=== PATIENT | female | born 1950 | race Hispanic/Latino ===

== ENCOUNTER 2017-06-26 20:11 | Inpatient (IN) | payer BC, MEDICARE, SELFPAY ==
[~2017-06-26 20:11] MED LIST: ISOVUE-370 76%-LOCM 1 ML ONE
[2017-06-26] MEDS ORDERED: EPINEPHrine 1 MG/ML AMP ONE (20:23)
[2017-06-26] MEDS ORDERED: Nitroglycerin 50 MG/250 ML BOT 250 ML ONE (20:35)
[2017-06-26 20:44] LABS: Hematocrit 43.3 % (36.0-47.0); Mean Platelet Volume 11.1 fL (7.4-10.4); Red Blood Cell (RBC) Count 4.77 mill/uL (4.20-5.40); White Blood Cell (WBC) Count 16.7 thou/uL (4.8-10.8)
[2017-06-26] MEDS ORDERED: methylPREDNISolone Sod Succ/PF 125 MG/2 ML VIAL ONE (20:49)
[2017-06-26] MEDS ORDERED: Famotidine/PF 20 mg/2ml Vial ONE (20:49)
--- NOTE | 2017-06-26 20:49 | RAD ---
CHEST ONE VIEWS: History: Dyspnea. FINDINGS: No comparison. The cardiac silhouette is magnified by projection. Pulmonary vasculature is somewhat engorged. Mediastinum is midline. No lobar consolidation or pneumothorax evident. theology teacher le ads overlie the chest. IMPRESSION: Pulmonary vascular congestion with borderline cardiomegaly. POS: [facility]
[2017-06-26 20:50] LABS: PTT 30.2 SEC (22.9-36.1); Prothrombin Time 13.3 SEC (12.0-14.7)
[2017-06-26 21:01] LABS: Lactic Acid - Sepsis 10.1 mmol/L (0.5-2.2)
[2017-06-26 21:02] LABS: ALT (SGPT) 43 U/L (8-55); AST (SGOT) 54 U/L (5-34); Alkaline Phosphatase 157 U/L (40-150); Anion Gap 25 mmol/L (10-20); BUN (Urea Nitrogen) 17 mg/dL (9.8-20.1); Bilirubin, Total 0.6 mg/dL (0.2-1.2); CK (CPK) 109 U/L (29-168); Calc. Creatinine Clearance 0 mL/min (70-130); Calcium 8.8 mg/dL (7.8-10.44); Carbon Dioxide 14 mmol/L (23-31); Chloride 105 mmol/L (98-107); Estimated GFR-MDRD 52; Globulin 3.4 g/dL (2.4-3.5); Lipase 18 U/L (8-78); Protein, Total 7.6 g/dL (6.0-8.3)
[2017-06-26 21:04] LABS: Neutrophil 45 % (42-75)
[2017-06-26 21:06] LABS: Troponin I Less than 0.010 ng/mL (< 0.028)
[2017-06-26] MEDS ORDERED: niCARdipine 20MG In NaCl 20 MG/200 ML BAG ONE (22:10)
--- NOTE | 2017-06-26 22:16 | CT ---
CT ABDOMEN AND PELVIS WITH IV CONTRAST: History: Chest and abdomen pain. FINDINGS: Small amount of right pleural fluid is present with bibasilar atelectasis. The gallbladder is surgic ally absent. The liver, spleen, kidneys, adrenal glands, and pancreas otherwise have a normal CT nhi earance. Circumaortic left renal vein is noted. There is calcification in the arterial structures. U rinary bladder is unremarkable. Diverticula arise from the colon without adjacent inflammation. IMPRESSION: 1. Small right pleural effusion. 2. Diverticulosis. No evidence of diverticulitis. 3. Atherosclerosis. POS: [facility]
--- NOTE | 2017-06-26 22:18 | CT ---
CT ARTERIOGRAM CHEST WITH IV CONTRAST AND 3D MIP IMAGING: History: Dyspnea, chest pain. FINDINGS: There is good contrast opacification of the pulmonary arteries and thoracic aorta with normal branch ing of the great vessels. Heart is slightly enlarged. Pulmonary vasculature is engorged with small a mount of bilateral pleural fluid and scattered mild, predominately dependent airspace opacity. IMPRESSION: 1. No CT evidence of pulmonary embolus. 2. Mild pulmonary vascular congestion. Small bilateral pleural effusions. POS: [facility]
[2017-06-26 22:25] LABS: Anion Gap 12 mmol/L (-14-95); T. Carbon Dioxide 24.8 mmol/L (1.0-85.0); pH (Venous) 7.387 (7.35-7.45); vO2 Saturation-calc 91.6 % (0.0-100.0)
[2017-06-26] MEDS ORDERED: Acetaminophen 325 MG TAB PO PRN (22:49)
[2017-06-26] MEDS ORDERED: HYDROcodone/Acetaminophen 5/325 mg Tablet PO PRN (22:49)
--- NOTE | 2017-06-26 22:49 | PDOC.EVN ---
Event Note - Event Note Event Note: [id number] 1, Lactic acidosis 2. Acute respiratory failure 3. Pulmonary edema 4. HTN uncontrolled plan: see orders
[2017-06-26] MEDS ORDERED: Nitroglycerin 50 MG/250 ML BOT 250 ML IVPB SCH (23:00)
[2017-06-26 23:01] LABS: Bilirubin Negative (Negative); Blood, Urine Small (Negative); Glucose, Urine (Dipstick) 250 mg/dL (Negative); Ketone, Urine Negative (Negative); Nitrite Negative (Negative); Protein, Urine (Dipstick) 100 mg/dL (Neg-Trace)
[2017-06-26 23:03] LABS: Hyaline Casts/LPF 0-3 HYALINE CAST LPF (0-3 Hyaline)
[2017-06-26 23:10] LABS: Bacteria/HPF Rare-Few HPF (None Seen); Renal Epithelial None Seen HPF (0-3); Transitional Epithelial 0-3 HPF (0-3); Yeast-All Forms None Seen HPF (None Seen)
[2017-06-26 23:43] VITALS: BMI 39.1
[2017-06-26 23:49] LABS: Troponin I 0.089 ng/mL (< 0.028)
[2017-06-27 00:53] LABS: Anion Gap 14 mmol/L (10-20); BUN (Urea Nitrogen) 16 mg/dL (9.8-20.1); Calc. Creatinine Clearance 94 mL/min (70-130); Calcium 9.1 mg/dL (7.8-10.44); Carbon Dioxide 23 mmol/L (23-31); Chloride 105 mmol/L (98-107); Estimated GFR-MDRD 68
[2017-06-27 02:51] LABS: #Lymphocytes 0.7 thou/uL (1.20-3.40); #Monocytes 0.2 thou/uL (0.11-0.59); #Neutrophils 11.9 thou/uL (1.40-6.50); %Eosinophils 0.3 % (0.0-10.0); %Lymphocytes 5.1 % (21.0-51.0); %Monocytes 1.4 % (0.0-10.0); Hematocrit 37.2 % (36.0-47.0); Mean Platelet Volume 10.2 fL (7.4-10.4); Red Blood Cell (RBC) Count 4.18 mill/uL (4.20-5.40); White Blood Cell (WBC) Count 12.8 thou/uL (4.8-10.8)
[2017-06-27 03:05] LABS: Troponin I 0.163 ng/mL (< 0.028)
[2017-06-27 03:11] LABS: Anion Gap 14 mmol/L (10-20); BUN (Urea Nitrogen) 17 mg/dL (9.8-20.1); Calc. Creatinine Clearance 90 mL/min (70-130); Calcium 8.8 mg/dL (7.8-10.44); Carbon Dioxide 24 mmol/L (23-31); Chloride 104 mmol/L (98-107); Estimated GFR-MDRD 64
[2017-06-27 05:38] LABS: Troponin I 0.151 ng/mL (< 0.028)
--- NOTE | 2017-06-27 06:16 | HP ---
DATE OF ADMISSION: 06/26/2017 CHIEF COMPLAINT: Dyspnea. HISTORY OF PRESENT ILLNESS: The patient is a 67-year-old female with no significant past medical hi story. The patient was in the restaurant was outside eating food and all of a sudden she started wong ving trouble breathing. The patient was brought to the ER. Upon ER arrival, the patient was having severe bronchospasm, so the patient was suspected of having possible allergic reaction, so patient was given epinephrine and IV Solu-Medrol and Pepcid. Following the epinephrine injection, the patie nt was found to have significantly elevated blood pressure in 180s to 200/120s, so patient was place d on the nitro drip and patient was developed pulmonary edema also. The patient was placed on BiPAP also. The patient denies any chest pain, denies any palpitations, denies any cough, denies any spu deb production. Denies any abdominal pain, denies any nausea, denies any vomiting. Complaints of d yspnea. PAST MEDICAL HISTORY: None. PAST SURGICAL HISTORY: Cholecystectomy, hysterectomy. SOCIAL HISTORY: Denies smoking, denies alcohol, denies any drugs. FAMILY HISTORY: Positive for heart problems. REVIEW OF SYSTEMS: Constitutional: Denies any fever, denies any chills. Eyes: Denies any vision problems. Ears: Denies any hearing loss. Neck: Denies any neck pain. Cardiovascular system: De nies any chest pain. Respiratory system: Positive for dyspnea. Positive for cough. Musculoskelet al: swelling. Cranial Nerve System: Denies syncope. Psychiatric: Denies depression or anx iety. Integumentary: Denies any rash. All other review of systems are reviewed and are negative. PHYSICAL EXAMINATION: CONSTITUTIONAL/VITAL SIGNS: At the time of H and P performed, blood pressure is 170/80, respiratory rate 18, pulse ox 97% on room air. GENERAL: The patient appears tired. HEENT: Anterior nares patent. Nose normal. Ears normal. Teeth intact. Tongue is moist. NECK: Supple. No JVD. CARDIOVASCULAR: S1, S2 present. Regular rate and rhythm. No murmurs, no rubs, no gallops. RESPIRATORY: Diminished breath sounds present. Positive crackles. No wheezing, no rhonchi. GASTROINTESTINAL: Abdomen is soft, nontender. No guarding, no organomegaly, no masses felt. MUSCULOSKELETAL: Positive for trace edema. INTEGUMENTARY: No obvious rashes seen. PSYCHIATRIC: Mood is appropriate at this time. LABORATORY AND DIAGNOSTIC DATA: At the time of H and P performed, white count 16.7, hemoglobin 14, platelet count is 232. PT 13.3, INR 1. BMP showed sodium 141, potassium 3, chloride 105, CO2 of 14 , BUN of 17, creatinine 1.02. Lactic acid 10.5. BNP 635. EKG, no acute ST wave changes seen. CT of abdomen and pelvis without contrast, showed small right pleural effusion, no evidence of divertic ulitis. CTP protocol showed no evidence of PE, mild pulmonary vascular congestion. ASSESSMENT AND PLAN: The patient is a 67-year-old female. 1. Hypertension, uncontrolled. Monitor blood pressure. Continue nitro drip, plan to add Cardene d rip for blood pressure. We will monitor blood pressure closely. 2. Acute respiratory failure, hypoxic. Continue BiPAP, wean as tolerated. Monitor respiratory sta tus closely. 3. Acute congestive heart failure exacerbation, might be secondary to epinephrine injection, but ne ed to rule out cardiac etiology. Plan to check cardiac enzymes. Plan to consult Cardiology to eval uate the patient. Plan to check 2D echo. Plan to start the patient on IV Lasix 40 b.i.d. 4. Lactic acidosis, etiology unclear. CT, no evidence of ischemia. Plan to check serial lactic le vels. Plan to start the patient on IV antibiotics. 5. Hypokalemia. Replace potassium closely. The case was discussed in detail with the patient.
--- NOTE | 2017-06-27 06:19 | ER ---
ADDENDUM DATE OF SERVICE: 06/26/2017 Please refer to the patient's electronic medical record for further details of her visit. In summary, the patient presented with sudden onset shortness of breath, which began shortly prior t o arrival. She denies that this happened before, and her corroborates this report. This ap parently happened while she was eating a grapefruit. She has tolerated citrus in the past without a cute allergies. She has not had anaphylaxis in the past. On arrival, she was maintaining her airway and was able to answer simple questions with 1-2 word ans wers. BiPAP was initiated due to severe respiratory distress. Her initial tachycardia was consiste nt with sinus tachycardia improved with BiPAP and initial IV fluid administration. Her breath sound s demonstrated bibasilar rales with accessory muscle use and respiratory distress. She was hemodyna mically stable on arrival, though with a borderline blood pressure of 102 systolic. Because of conc levi for acute anaphylaxis, the patient was given intramuscular epinephrine. Following administratio n of this, her blood pressure jen quite significantly to approximately 250 systolic. Chest x-ray r evealed findings consistent with pulmonary vascular congestion, likely due to flash pulmonary edema. This, too, is consistent with her bibasilar rales. Her respiratory effort significantly and stead jessica improved while on BiPAP. Because of her spike in blood pressure, the patient was given nitrogly cerin IV. This improved her blood pressure somewhat, but ultimately she required further vasoactive medications. After being given Cardene, her blood pressure continued to improve. Again, her respi ratory effort significantly improved throughout her ER stay. Severely elevated lactate is noted, wi thout evidence of acute pulmonary embolus or significant intra-abdominal pathology such as ischemic colitis. Her BNP is elevated and she does have small bilateral pleural effusions with pulmonary vas cular congestion again noted on her CT imaging. This is all consistent with pulmonary edema. Her a nion gap was also elevated, likely due to her lactic acid elevation. A venous blood gas shows a nor mal pH. She has mild leukocytosis, which likely an acute phase reactant. She is in guarded, but st able condition at the time of admission to the ICU. She was evaluated by Dr. Moran at the [facility] Internal Medicine Service prior to admission. The patient's family was updated with the findings an d plan for admission, and all her questions were answered.
[2017-06-27] MEDS: Heparin 5,000 UNITS/ML VIAL SC SCH ×3 (08:38→20:52)
[2017-06-27] MEDS ORDERED: FLU VACC TS2017-18 (>65YR) 0.5 ML SYRINGE IM ONE (09:00)
[2017-06-27] MEDS ORDERED: Losartan 25 MG TAB PO SCH (09:00)
--- NOTE | 2017-06-27 09:15 | PDOC.PN ---
- Subjective Encounter Start Date: 06/27/17 Encounter Start Time: 09:20 Subjective: No complaints, feeling better and off BiPap. No Chest pain. - Objective MAR Reviewed: Yes Vital Signs & Weight: Vital Signs (12 hours) Temp Pulse Resp Pulse Ox 06/27/17 08:00 98.1 F 102 H 18 100 06/27/17 04:07 96 06/27/17 04:00 98.4 F 06/27/17 01:02 97 06/27/17 00:00 99.2 F 06/26/17 23:50 99.2 F 102 H 20 100 06/26/17 23:16 103 H 06/26/17 23:00 99.2 F Weight Weight 199 lb Most Recent Monitor Data Heart Rate from ECG 106 NIBP 152/84 NIBP BP-Mean 105 Respiration from ECG 23 SpO2 98 I&O: 06/26/17 06/27/17 06/28/17 06:59 06:59 06:59 Intake Total 480 Output Total 1800 150 Balance -1800 330 Result Diagrams: 06/29/17 08:15 06/29/17 08:15 Phys Exam - Physical Examination Constitutional: NAD HEENT: moist MMs Respiratory: no wheezing, no rales, no rhonchi Cardiovascular: RRR, no significant murmur Gastrointestinal: soft, positive bowel sounds Neurological: non-focal, moves all 4 limbs Psychiatric: normal affect, A&O x 3 Dx/Plan (1) Acute respiratory failure Code(s): J96.00 - ACUTE RESPIRATORY FAILURE, UNSP W HYPOXIA OR HYPERCAPNIA Status: Resolved Qualifiers: Respiratory failure complication: hypoxia Qualified Code(s): J96.01 - Acute respiratory failure with hypoxia Comment: resolved (2) Hypertensive emergency Code(s): I16.1 - HYPERTENSIVE EMERGENCY Status: Resolved Comment: resolved, off nitro drip but still requiring some cardene. (3) Congestive heart failure Code(s): I50.9 - HEART FAILURE, UNSPECIFIED Status: Acute Qualifiers: Congestive heart failure type: diastolic Comment: intack EF, exacc due to Hypertensive emergency - Plan cont current plan of care * . - Discharge Day Encounter end time: 09:40
--- NOTE | 2017-06-27 10:50 | CON ---
DATE OF CONSULTATION: 06/27/2017 HISTORY OF PRESENT ILLNESS: She is a 67-year-old female, 5 feet, 199 pounds, BMI 38 who came to the hospital with coughing and shortness of breath. No fever, no chills. She is a nonsmoker, no prio r history of TB, pneumonia or bronchial asthma. She has history of hypertension, but stopped taking her medication. According to the who is at the bedside she is relatively active and walks a fair distance wi thout getting markedly short of breath. She is a housewife. PAST SURGICAL HISTORY: Hysterectomy and gallbladder surgery. ALLERGIES: None. REVIEW OF SYSTEMS: Otherwise unremarkable. PHYSICAL EXAMINATION: VITAL SIGNS: Blood pressure 134/64, pulse 88, respirations 18, sats are 98%. I's and O's are negat sarah 1800. CHEST: Chest revealed decreased breath sounds without any wheezing. CARDIAC: Normal S1-S2. ABDOMEN: Soft. No masses. LABORATORY: White count 12,000, H\T\H 12 and 37, platelet count 66. Electrolytes are normal. Trop onin 0.15. IMPRESSION: Hypertensive congestive heart failure, elevated troponin, abnormal EKG, likely ischemia . PLAN: From a pulmonary standpoint, start her on Cozaar, await input from Cardiology. Will follow while in the ICU.
[2017-06-27] MEDS: Furosemide 40 MG/4 ML VIAL SLOW IVP SCH ×3 (11:59→22:55)
[2017-06-27] MEDS ORDERED: Potassium Chloride 20 MEQ TAB PO SCH (12:45)
--- NOTE | 2017-06-27 13:01 | CON ---
DATE OF SERVICE: 06/27/2017 REASON FOR CONSULTATION: Acute dyspnea. PRIMARY CARE PHYSICIAN: Lucas Moran MD HISTORY OF PRESENT ILLNESS: Mrs. Kerr is a 67-year-old female with no significant past me dical history other than remotely diagnosed hypertension that has not been treated with medication. She was diagnosed with hypertension approximately 6 years ago and started on lisinopril as well as another agent, both of which resulted in angioedema and anaphylaxis. These were abruptly discontinu ed and she did not continue on medical therapy and has not seen a doctor regularly or checked her bl ood pressure in her home setting. Yesterday after eating canned menudo, she began having abrupt onset of shortness of breath that wors ened. In the emergency department after administering medications, blood pressure was found to be g reater than 220 systolic. She developed resultant pulmonary edema and required BiPAP noninvasive ve ntilatory support. She has been placed on Cardene and Cozaar and her blood pressures become under c ontrol and with diuresis, her symptoms have resolved. Echo at the bedside shows preserved LV systolic function, mild LVH that is concentric in nature and normal valvular structures. Her symptoms are resolved. She has never had symptoms such as this bef ore. PAST MEDICAL HISTORY: Hypertension. PAST SURGICAL HISTORY: 1. Cholecystectomy. 2. Hysterectomy. ALLERGIES: No known drug allergies. SOCIAL HISTORY: She denies tobacco use, ethanol abuse, or illicit recreational drug use. FAMILY HISTORY: Negative with respect to premature atherosclerosis. HOME MEDICATIONS: None. REVIEW OF SYSTEMS: As per the history of present illness. Remainder of 12 system review is negativ e. She denies chest pain, palpitations, syncope, near syncope, or claudication prior to this event. She denies exertional dyspnea, orthopnea, or lower extremity edema prior to this event. PHYSICAL EXAMINATION: VITAL SIGNS: Blood pressure currently 150/79, pulse 100 and regular, respiratory rate 17 and nonlab ored, temperature 98.8. GENERAL: This is a well-developed, overweight 67-year-old female in no acute distress. Sh e is alert and oriented x4. She answers questions appropriately. HEENT: Head was atraumatic, normocephalic. Pupils are equally round and reactive. Sclerae and con junctivae are clear. There are no oral lesions. NECK: Supple, no JVD, thyromegaly, or carotid bruits. CHEST: Symmetrical inspiration and expiration. HEART: Regular in rate and rhythm. No murmur, S3 or S4. PMI is nondisplaced. Not enlarged. LUNGS: Clear to auscultation in all xavier. No adventitious sounds appreciated. ABDOMEN: Soft, nontender, nondistended, without mass or organomegaly. Bowel sounds are present in all 4 quadrants. No flank bruits auscultated. EXTREMITIES: 2+ pulses noted bilaterally in the upper and lower extremities. Strength 5/5 bilatera lly. There is no clubbing, cyanosis or edema. NEUROLOGIC: Grossly intact with no focal motor deficits appreciated. DATABASE: Her EKG reveals sinus rhythm with voltage criteria for LVH and secondary ST changes. LABORATORY DATA: CBC reveals a white count of 12, H\T\H 12 and 37, platelet count 166,000. Differe ntial white blood cells normal. Red cell indices normocytic. Coagulation studies are normal. Chem istries reveal normal electrolytes, BUN and creatinine of 17 and 0.8. GFR is estimated at 64, gluco se 218. LFTs are within normal limits. Troponin was indeterminately elevated, trending downward, p eaking at 0.163. ASSESSMENT: 1. Hypertensive urgency/emergency. 2. Congestive heart failure secondary to #1. 3. Uncontrolled systemic hypertension. 4. Chronic kidney disease stage 2. 5. Obesity. 6. Isolated troponin leak secondary to #1. RECOMMENDATIONS: 1. From a cardiac standpoint, she is stable and symptom free currently. We will initiate medical t herapy for control of her hypertension and get her transferred out of the CCU to telemetry. Upon co ntrol of her blood pressure with oral medication, she may be discharged home with a plan to follow u p in the outpatient setting for PET scanning to evaluate for concomitant coronary artery disease yeny alfonso does not appear to be in active player in her decompensation event currently. 2. I will follow along with you and appreciate the opportunity to participate.
[2017-06-27] MEDS ORDERED: Metoprolol Tartrate 5 MG/5 ML VIAL IVP SCH (17:00)
[2017-06-27] MEDS: Losartan 25 MG TAB PO SCH (20:52)
--- NOTE | 2017-06-28 08:24 | PDOC.PN ---
- Subjective Encounter Start Date: 06/28/17 Encounter Start Time: 10:00 Subjective: Patient feeling better. Still on some cardene to control BP. No chest pain. -: No further SOB. - Objective MAR Reviewed: Yes Vital Signs & Weight: Vital Signs (12 hours) Temp 06/28/17 04:00 99.1 F 06/28/17 00:00 98.9 F Weight Weight 199 lb Most Recent Monitor Data Heart Rate from ECG 71 NIBP 119/49 NIBP BP-Mean 68 Respiration from ECG 13 SpO2 95 I&O: 06/27/17 06/28/17 06/29/17 06:59 06:59 06:59 Intake Total 1951 Output Total 1800 1368 Balance -1800 -216 Result Diagrams: 06/27/17 02:38 06/27/17 02:38 Phys Exam - Physical Examination Constitutional: NAD HEENT: moist MMs Respiratory: no wheezing, no rales, no rhonchi Cardiovascular: RRR, no significant murmur Gastrointestinal: soft, positive bowel sounds Musculoskeletal: no edema Neurological: non-focal, moves all 4 limbs Psychiatric: normal affect, A&O x 3 Dx/Plan (1) Acute respiratory failure Code(s): J96.00 - ACUTE RESPIRATORY FAILURE, UNSP W HYPOXIA OR HYPERCAPNIA Status: Resolved Qualifiers: Respiratory failure complication: hypoxia Qualified Code(s): J96.01 - Acute respiratory failure with hypoxia Comment: resolved (2) Hypertensive emergency Code(s): I16.1 - HYPERTENSIVE EMERGENCY Status: Resolved Comment: resolved, off nitro drip but still requiring some cardene. (3) Congestive heart failure Code(s): I50.9 - HEART FAILURE, UNSPECIFIED Status: Acute Qualifiers: Congestive heart failure type: diastolic Comment: intack EF, exacc due to Hypertensive emergency - Plan cont current plan of care Wean Cardene and titrate up BP meds as able. Can d/c once on oral BP -: meds only and ok with cards. * . - Discharge Day Encounter end time: 10:30
[2017-06-28] MEDS: Potassium Chloride 20 MEQ TAB PO SCH (08:39)
[2017-06-28] MEDS: Losartan 25 MG TAB PO SCH ×2 (08:40→22:18)
[2017-06-28] MEDS: Furosemide 20 MG TAB PO SCH (08:41)
[2017-06-28] MEDS: Enoxaparin Sodium 40 MG/0.4 ML SYRINGE SC SCH (08:42)
--- NOTE | 2017-06-28 12:24 | PRG ---
DATE OF SERVICE: 06/28/2017 SUBJECTIVE: Ms. Kerr this morning is awake, alert, responsive. No shortness of breath. PHYSICAL EXAMINATION: VITAL SIGNS: Blood pressure is improved to 119/49, temperature 99, respiration 18. CHEST: Decreased breath sounds, no wheezing. CARDIAC: Normal S1, S2. No gallops. ABDOMEN: Soft. No masses. IMPRESSION: 1. Congestive heart failure. 2. Hypertension. 3. Azotemia, improved. 4. Respiratory failure. 5. Obesity. PLAN: Discontinue IV, blood pressure medications, losartan, Lopressor. She will be transferred out of the ICU when okay with Cardiology. We will follow.
--- NOTE | 2017-06-29 08:20 | PRG ---
DATE OF SERVICE: 06/29/2017 SUBJECTIVE: This morning, awake, alert, and responsive. No pain, no shortness of breath. PHYSICAL EXAMINATION: VITAL SIGNS: Blood pressure 160/70, pulse 80, respirations 18. CHEST: Chest revealed decreased breath sounds, no wheezing. CARDIAC: Normal S1-S2. ABDOMEN: Soft, no masses. IMPRESSION: 1. Hypertension. 2. Congestive heart failure. PLAN: From a Pulmonary standpoint of view could be transferred out of the ICU. Continue to monitor blood pressure.
[2017-06-29 08:28] LABS: #Basophils 0.1 thou/uL (0.0-0.2); #Eosinphils 0.2 thou/uL (0.0-0.7); #Lymphocytes 2.6 thou/uL (1.20-3.40); #Monocytes 0.8 thou/uL (0.11-0.59); #Neutrophils 7.1 thou/uL (1.40-6.50); %Basophils 0.7 % (0.0-1.0); %Eosinophils 2.1 % (0.0-10.0); %Lymphocytes 24.2 % (21.0-51.0); %Monocytes 7.6 % (0.0-10.0); Hematocrit 41.4 % (36.0-47.0); Mean Platelet Volume 10.5 fL (7.4-10.4); Red Blood Cell (RBC) Count 4.64 mill/uL (4.20-5.40); White Blood Cell (WBC) Count 10.8 thou/uL (4.8-10.8)
[2017-06-29 08:42] LABS: ALT (SGPT) 44 U/L (8-55); AST (SGOT) 21 U/L (5-34); Alkaline Phosphatase 122 U/L (40-150); Anion Gap 11 mmol/L (10-20); BUN (Urea Nitrogen) 31 mg/dL (9.8-20.1); Bilirubin, Total 0.7 mg/dL (0.2-1.2); Calc. Creatinine Clearance 81 mL/min (70-130); Calcium 9.6 mg/dL (7.8-10.44); Carbon Dioxide 27 mmol/L (23-31); Chloride 103 mmol/L (98-107); Estimated GFR-MDRD 57; Globulin 3.1 g/dL (2.4-3.5); Protein, Total 7.1 g/dL (6.0-8.3)
[2017-06-29] MEDS: Furosemide 20 MG TAB PO SCH (09:05)
[2017-06-29] MEDS: Enoxaparin Sodium 40 MG/0.4 ML SYRINGE SC SCH (09:05)
[2017-06-29] MEDS: Potassium Chloride 20 MEQ TAB PO SCH (09:05)
[2017-06-29] MEDS: Losartan 25 MG TAB PO SCH ×2 (09:06→20:50)
--- NOTE | 2017-06-29 12:10 | PDOC.CTH ---
Cardiology Progress Note - Subjective No new issues. BP better with initiation of medical therapy. Not at goal yet, but meds certainly not at therapeutic levels yet. Denies CV symptoms. - Objective Vital Signs Temp Pulse Pulse Pulse Resp BP BP 06/29/17 09:12 67 68 173/80 H 185/63 H 06/29/17 08:00 98.9 F 71 18 06/29/17 04:00 98.7 F Pulse Ox Pulse Ox 06/29/17 09:12 96 98 06/29/17 08:00 06/29/17 04:00 Weight 199 lb 06/28/17 06/29/17 06/30/17 06:59 06:59 06:59 Intake Total 1952 964 250 Output Total 4117 1170 100 Balance -2165 -206 150 - Physical Examination General/Neuro: alert & oriented x3, NAD Neck: carotid US brisk, no JVD present Lungs: CTA, unlabored respirations Heart: PMI normal, RRR Abdomen: no HSM, NT/ND, soft Extremities: other: (2 + pulses, no edema) Other PE findings: Neuro: no focal motor defs - Telemetry Telemetry Rhythm: sinus rhythm - Labs Result Diagrams: 06/29/17 08:15 06/29/17 08:15 Troponin/CKMB CK-MB (CK-2) 1.3 ng/mL (0-6.6) 06/26/17 20:31 Troponin I 0.151 ng/mL (< 0.028) H 06/27/17 04:56 - Assessment/Plan 1. HTN urgency: resolved. Continue current meds. Titrate to optimal effects in outpatient setting. Will see her the Monday after Thanksgiving. 2. CHF, acute/diastolic: resolved. Continue to monitor with optimization of BP over time. Outpatient stress testing will be ordered.
--- NOTE | 2017-06-29 15:13 | PDOC.PN ---
- Subjective Encounter Start Date: 06/29/17 Encounter Start Time: 09:20 Pt seen for followup re: CHF. says she feels better. Denies chest pain, fevers , chills or vomiting. - Objective MAR Reviewed: Yes Vital Signs & Weight: Vital Signs (12 hours) Temp Pulse Pulse Pulse Resp BP BP 06/29/17 13:00 97.8 F 65 17 06/29/17 10:10 98.5 F 63 17 06/29/17 09:12 67 68 173/80 H 185/63 H 06/29/17 08:00 98.9 F 71 18 06/29/17 04:00 98.7 F BP Pulse Ox Pulse Ox Pulse Ox 06/29/17 13:00 149/78 H 94 L 06/29/17 10:10 167/77 H 93 L 06/29/17 09:12 96 98 06/29/17 08:00 06/29/17 04:00 Weight Weight 199 lb Most Recent Monitor Data Heart Rate from ECG 64 NIBP 185/63 NIBP BP-Mean 106 Respiration from ECG 17 SpO2 94 I&O: 06/28/17 06/29/17 06/30/17 06:59 06:59 06:59 Intake Total 1952 964 250 Output Total 4117 1170 100 Balance -2165 -206 150 Result Diagrams: 06/29/17 08:15 06/29/17 08:15 EKG Reviewed by me: Yes (Tele: NSR) Phys Exam - Physical Examination Constitutional: NAD HEENT: moist MMs, oral pharynx no lesions Neck: supple Respiratory: clear to auscultation bilateral Cardiovascular: RRR, no rub Gastrointestinal: soft, non-tender Musculoskeletal: pulses present Neurological: moves all 4 limbs Psychiatric: normal affect Skin: no rash Dx/Plan (1) Congestive heart failure Code(s): I50.9 - HEART FAILURE, UNSPECIFIED Status: Acute Qualifiers: Congestive heart failure type: diastolic Comment: intack EF, exacc due to Hypertensive emergency (2) HTN (hypertension) Code(s): I10 - ESSENTIAL (PRIMARY) HYPERTENSION Status: Chronic - Plan PT/OT, out of bed/ambulate, DVT proph w/lovenox * . Continue oral furosemide. Monitor vital signs and titrate antihypertensives as needed. Review of Systems - Review of Systems Constitutional: negative: Fever, Chills, Sweats, Weakness, Malaise Cardiovascular: negative: Chest Pain, Palpitations, Orthopnea, Paroxysmal Noc. Dyspnea, Edema, Light Headedness Neurological: negative: Weakness, Numbness, Incoordination, Change in Speech, Confusion, Seizures - Medications/Allergies Allergies/Adverse Reactions: Allergies Allergy/AdvReac Type Severity Reaction Status Date / Time No Known Drug Allergies Allergy Verified 06/26/17 23:44 Medications: Current Medications Acetaminophen (Tylenol) 650 mg PO Q4H PRN PRN Reason: Headache/Fever or Pain Hydrocodone Bitart/Acetaminophen (Solen 5/325) 1 tab PO Q4H PRN PRN Reason: Moderate Pain (4-6) Enoxaparin Sodium (Lovenox) 40 mg SC 0900 [facility] Last Admin: 06/29/17 09:05 Dose: 40 mg Furosemide (Lasix) 20 mg PO DAILY [facility] Last Admin: 06/29/17 09:05 Dose: 20 mg Nitroglycerin/Dextrose (Nitroglycerin 50 Mg/250 Ml Bot) 250 mls @ 0 mls/hr IVPB INF SHIRA; Titrate PRN Reason: Protocol Last Admin: 06/27/17 12:47 Dose: 250 mls Losartan Potassium (Cozaar) 50 mg PO BID [facility] Last Admin: 06/29/17 09:06 Dose: 50 mg Metoprolol Succinate (Toprol Xl) 50 mg PO BID [facility] Last Admin: 06/29/17 09:06 Dose: 50 mg Potassium Chloride (K-Dur) 20 meq PO QAM-WM [facility] Last Admin: 06/29/17 09:05 Dose: 20 meq Sodium Chloride (Flush - Normal Saline) 10 ml IVF Q12HR [facility] Last Admin: 06/29/17 09:07 Dose: 10 ml Sodium Chloride (Flush - Normal Saline) 10 ml IVF PRN PRN PRN Reason: Saline Flush
--- NOTE | 2017-06-29 17:12 | EKG ---
Test Reason : Blood Pressure : / mmHG Vent. Rate : 067 BPM Atrial Rate : 067 BPM P-R Int : 136 ms QRS Dur : 110 ms QT Int : 428 ms P-R-T Axes : 032 003 155 degrees QTc Int : 452 ms Normal sinus rhythm Left ventricular hypertrophy with repolarization abnormality Abnormal ECG When compared with ECG of 26-JUN-2017 20:22, (Unconfirmed) Premature ventricular complexes are no longer Present Vent. rate has decreased BY 62 BPM T wave inversion more evident in Anterolateral leads Confirmed by DAREK ELLIOTT, DR. Nichols ([id number]) on 06/29/2017 5:12:03 PM Referred By: WM LOREDO Confirmed By:DR. Magdalena OSWALD MD
[2017-06-30] MEDS: Enoxaparin Sodium 40 MG/0.4 ML SYRINGE SC SCH (09:25)
[2017-06-30] MEDS: Losartan 25 MG TAB PO SCH (09:26)
[2017-06-30] MEDS: Furosemide 20 MG TAB PO SCH (09:27)
[2017-06-30] MEDS: Potassium Chloride 20 MEQ TAB PO SCH (09:27)
--- NOTE | 2017-06-30 09:53 | PRG ---
DATE OF SERVICE: 06/30/2017 SUBJECTIVE: Ms. Kerr, this morning is awake, alert, responsive. No shortness of breath. PHYSICAL EXAMINATION: VITAL SIGNS: Blood pressure is still elevated at 183/74, sats are 95% on room air, respiration 16, t emperature 98. CHEST: Decreased breath sounds, no wheezing. CARDIAC: Normal S1, S2. No gallops. ABDOMEN: Soft. No masses. IMPRESSION: Hypertension, probably diastolic dysfunction. PLAN: Pulmonary will follow at a distance. Nothing additional to offer.
[2017-06-30 12:29] VITALS: BP 140/68; TEMP 98.5
--- NOTE | 2017-06-30 13:11 | DIS ---
PRIMARY CARE PHYSICIAN: None. DATE OF ADMISSION: 06/26/2017 DATE OF DISCHARGE: 06/30/2017 DISCHARGE DIAGNOSES: 1. Hypertensive emergency. 2. Diastolic congestive heart failure. CONDITION OF PATIENT AT THE TIME OF DISCHARGE: Stable. I assessed Ms. Kerr on the day of discharge. She denies any chest pain or shortness of breath. Vit al signs are stable. S1 and S2 are heard, regular. Lungs are clear to auscultation bilaterally. DISCHARGE MEDICATIONS: Losartan 50 mg 2 times a day, Toprol-XL 50 mg 2 times a day. Furosemide 20 m g daily. HOSPITAL COURSE: Ms. Kerr is a pleasant 67-year-old lady, who was admitted to [facility] on 06/26/2017 for hypertensive emergency. She also had a 2D echocardiogram which showed normal left ventricular ejection fraction, but was suggestive of diastolic dysfunction. She improve d with diuretics as well as intravenous antihypertensives. She has stepped down to oral antihyperten sives and is being discharged home in a stable condition. She is being continued on furosemide for now. She is advised to check her blood pressure and heart rate readings 3 times a day and show the reading s to her primary care provider. She is also advised to follow up with primary care provider for crea tinine and electrolyte checks. Many thanks for allowing me to participate in your patient's care. Please feel free to contact me wi th any questions or concerns. DISCHARGE DESTINATION: Home. TOTAL AMOUNT OF TIME SPENT COORDINATING THIS DISCHARGE: 33 minutes.
--- NOTE | 2017-08-05 14:05 | EKG ---
Test Reason : Blood Pressure : / mmHG Vent. Rate : 129 BPM Atrial Rate : 129 BPM P-R Int : 142 ms QRS Dur : 102 ms QT Int : 328 ms P-R-T Axes : 045 005 134 degrees QTc Int : 480 ms Sinus tachycardia with occasional Premature ventricular complexes Possible Left atrial enlargement Abnormal ECG No changes Confirmed by GENOVEVA MENDOZA DO ([id number]), commissioning editor JEREMIAH MAO ([id number]) on 08/05/2017 2:05:12 PM Referred By: Confirmed By:GENOVEVA MENDOZA DO
--- NOTE | 2017-08-05 14:05 | EKG ---
Test Reason : SOB Blood Pressure : / mmHG Vent. Rate : 152 BPM Atrial Rate : 152 BPM P-R Int : 124 ms QRS Dur : 094 ms QT Int : 276 ms P-R-T Axes : 043 009 139 degrees QTc Int : 438 ms Sinus tachycardia Abnormal ECG Confirmed by GENOVEVA MENDOZA DO ([id number]), graphic editor JEREMIAH MAO ([id number]) on 08/05/2017 2:05:00 PM Referred By: KELLY Confirmed By:GENOVEVA MENDOZA DO
== END 2017-06-30 15:10 | disposition home or self-care (01) | DRG 291 ==
LOC: ERS 20:11 → CCU 21:30 → 2NO 06-29 10:32
PROVIDERS: ADMIT Internal Medicine; ATTEND Internal Medicine
PROC: 5A09357 Assistance with Respiratory Ventilation, Less than 24 Consecutive Hours, Continuous Positive Airway Pressure (ICD-10-PCS; principal; 2017-06-26)
DX: I13.0 Hypertensive heart and chronic kidney disease with heart failure and stage 1 through stage 4 chronic kidney disease, or unspecified chronic kidney disease (principal); J96.01 Acute respiratory failure with hypoxia; E87.2 Acidosis; I50.33 Acute on chronic diastolic (congestive) heart failure; I16.1 Hypertensive emergency; E87.6 Hypokalemia; E66.9 Obesity, unspecified; Z68.37 Body mass index [BMI] 37.0-37.9, adult; N18.2 Chronic kidney disease, stage 2 (mild)
CPT/HCPCS: 36415; 71010; 71275; 74177; 80048; 80053; 81003; 81015; 82330; 82550; 82553; 82803; 83605; 83690; 83880; 84443; 84484; 85025; 85610; 85730; 93005; 93010; 93306; 93798; 94640; 94660; 96365; 96366; 96372; 96375; A4216; J0171; J1644; J1650; J1940; J2930; J7050; J7620; S0028

== ENCOUNTER 2017-08-30 09:59 | Outpatient (CLI) | payer MEDICARE | END 2017-08-30 10:00 | disposition home or self-care (01) | LOC: BICMAMMO 09:59 | PROVIDERS: ATTEND Family Medicine | DX: Z12.31 Encounter for screening mammogram for malignant neoplasm of breast (principal) | CPT/HCPCS: 77063; 77067 ==

== ENCOUNTER 2018-09-28 10:47 | Outpatient (CLI) | payer MEDICARE | END 2018-09-28 10:48 | disposition home or self-care (01) | LOC: BICMAMMO 10:47 | PROVIDERS: ATTEND Family Medicine | DX: Z12.31 Encounter for screening mammogram for malignant neoplasm of breast (principal) | CPT/HCPCS: 77063; 77067 ==

== ENCOUNTER 2019-10-02 10:14 | Outpatient (CLI) | payer MEDICARE ==
--- NOTE | 2019-10-02 10:52 | MMO ---
Bilateral MAMMO Bilat Screen [facility]. CLINICAL HISTORY: Patient is 69 years old and is seen for screening. The patient has no family history of breast cancer. The patient has no personal history of cancer. The patient has a history of left Ultrasound Guided Core Biopsy in July, - fibroadenoma. VIEWS: The views performed were: bilateral craniocaudal with tomosynthesis and bilateral mediolateral oblique with tomosynthesis. FILMS COMPARED: The present examination has been compared to prior imaging studies performed at [facility] on 05/01/2013, 06/02/2015, 08/30/2017 and 09/28/2018. This study has been interpreted with the assistance of computer-aided detection. MAMMOGRAM FINDINGS: There are scattered fibroglandular densities. There are stable benign appearing calcifications seen in both breasts. Nodularity is stable. There are no suspicious masses, suspicious calcifications, or new areas of architectural distortion. IMPRESSION: THERE IS NO MAMMOGRAPHIC EVIDENCE OF MALIGNANCY. A ROUTINE FOLLOW-UP MAMMOGRAM IN 1 YEAR IS RECOMMENDED. THE RESULTS OF THIS EXAM WERE SENT TO THE PATIENT. ACR BI-RADS Category 2 - Benign finding MAMMOGRAPHY NOTE: 1. A negative mammogram report should not delay a biopsy if a dominant of clinically suspicious mass is present. 2. Approximately 10% to 15% of breast cancers are not detected by mammography. 3. Adenosis and dense breasts may obscure an underlying neoplasm. Reported by: NAY JOAQUIN MD Electonically Signed: [id number]
== END 2019-10-02 10:15 | disposition home or self-care (01) ==
LOC: BICMAMMO 10:14
PROVIDERS: ATTEND Nurse Practitioner Family
DX: Z12.31 Encounter for screening mammogram for malignant neoplasm of breast (principal); Z91.89 Other specified personal risk factors, not elsewhere classified
CPT/HCPCS: 77063; 77067

== ENCOUNTER 2022-12-15 09:03 | Outpatient (CLI) | payer MEDICARE | END 2022-12-15 09:04 | disposition home or self-care (01) | LOC: BICMAMMO 09:03 | PROVIDERS: ATTEND Family Medicine | DX: Z12.31 Encounter for screening mammogram for malignant neoplasm of breast (principal) | CPT/HCPCS: 77063; 77067 ==

== ENCOUNTER 2022-12-23 10:05 | Outpatient (CLI) | payer MEDICARE | END 2022-12-23 10:06 | disposition home or self-care (01) | LOC: BICMAMMO 10:05 | PROVIDERS: ATTEND Family Medicine | DX: Z13.820 Encounter for screening for osteoporosis (principal); N95.9 Unspecified menopausal and perimenopausal disorder; M85.89 Other specified disorders of bone density and structure, multiple sites | CPT/HCPCS: 77080 ==

== ENCOUNTER 2023-08-30 11:21 | Inpatient (IN) | payer MEDICARE ==
[2023-08-30 12:26] LABS: #Eosinphils 0.2 thou/uL (0.0-0.7); #Monocytes 0.1 thou/uL (0.11-0.59); #Neutrophils 3.7 thou/uL (1.40-6.50); %Eosinophils 2.9 % (0.0-10.0); %Lymphocytes 22.6 % (21.0-51.0); %Monocytes 2.5 % (0.0-10.0); %Neutrophils 71.6 % (42.0-75.0); Hematocrit 20.6 % (36.0-47.0); Hemoglobin 7.4 g/dL (12.0-16.0); Mean Corpuscular HGB CONC 35.9 g/dL (32.0-36.0); Mean Corpuscular Hemoglobin 42.3 pg (27.0-31.0); Mean Corpuscular Volume 117.7 fl (78.0-98.0); Mean Platelet Volume 12.6 fL (7.4-10.4); Platelet Count 147 10x3/uL (130-400); RBC Distribution Width 12.9 % (11.5-14.5); Red Blood Cell (RBC) Count 1.75 mill/uL (4.20-5.40); White Blood Cell (WBC) Count 5.2 10x3/uL (4.8-10.8)
[2023-08-30 12:55] LABS: ALT (SGPT) 18 U/L (8-55); AST (SGOT) 27 U/L (5-34); Albumin 4.5 g/dL (3.4-4.8); Alkaline Phosphatase 79 U/L (40-110); Anion Gap 18 mmol/L (10-20); BUN (Urea Nitrogen) 40 mg/dL (9.8-20.1); Bilirubin, Total 1.6 mg/dL (0.2-1.2); Calc. Creatinine Clearance 0 mL/min (70-130); Calcium 9.3 mg/dL (7.8-10.44); Carbon Dioxide 21 mmol/L (23-31); Chloride 109 mmol/L (98-107); Estimated GFR 19; Glucose 114 mg/dL (83-110); Lipase 13 U/L (8-78); Magnesium 2.2 mg/dL (1.6-2.6); Potassium 4.6 mmol/L (3.5-5.1); Protein, Total 7.5 g/dL (5.8-8.1); Sodium 143 mmol/L (136-145)
[2023-08-30 12:59] LABS: Troponin I Less than 0.010 ng/mL (< 0.028)
[2023-08-30 13:26] LABS: PTT 31.8 sec (22.9-36.1)
[2023-08-30 13:28] LABS: INR-International Normal Ratio 1.2; Prothrombin Time 14.8 sec (12.0-14.7)
[2023-08-30] MEDS ORDERED: Iopamidol-370 76% 500 ML MDV (1 ML CHARGE) ONE (13:32)
[2023-08-30 13:38] LABS: SARS-CoV-2 NAA Rapid Test Not Detected (NotDetected)
[2023-08-30 13:52] LABS: CellaVision Operator ID LAB.KB; Macrocytosis MODERATE=16-30 cells HPF (0-5); Ovalocytes SLIGHT = 2-5 cells HPF (0-1); Platelet Adequacy Comment Platelets Normal; Polychromasia SLIGHT = 2-3 cells HPF (0-2); Tear Drops SLIGHT = 2-5 cells HPF (0-1)
[2023-08-30] MEDS ORDERED: Acetaminophen 325 MG TAB PO PRN (14:00)
[2023-08-30] MEDS ORDERED: Dextrose 5% in Water 1,000 ML IV PRN (14:00)
[2023-08-30] MEDS ORDERED: Ondansetron PF 4 MG/2 ML Vial IVP PRN (14:00)
[2023-08-30] MEDS ORDERED: HYDROcodone/Acetaminophen 5/325 mg Tablet PO PRN (14:00)
[2023-08-30] MEDS ORDERED: hydrALAZINE 20 MG/ML VIAL SLOW IVP PRN (14:03)
[2023-08-30] MEDS ORDERED: Amlodipine 10 MG TAB PO SCH (14:15)
[2023-08-30] MEDS ORDERED: Aspirin Chewable 81 MG TAB ONE (14:25)
[2023-08-30] MEDS ORDERED: Aspirin 81 mg Enteric Coated Tablet PO SCH (14:30)
[2023-08-30 14:41] LABS: Hemoglobin A1c 5.8 % (4.0-6.0)
[2023-08-30 14:47] LABS: Cardiac Risk 4.8 (Less than 4.5)
[2023-08-30 15:27] LABS: Lactic Acid 1.1 mmol/L (0.5-2.2)
[2023-08-30] MEDS: Lactated Ringer's 1,000 ML IV SCH (15:28)
[2023-08-30 15:55] VITALS: BMI 32.7
[2023-08-30] MEDS: Atorvastatin Calcium 40 MG TAB PO SCH (20:21)
[2023-08-30] MEDS: Famotidine 20 MG TAB PO SCH (20:21)
[2023-08-31 04:14] LABS: Bilirubin Negative (Negative); Blood, Urine Negative (Negative); CAUTI Indications for Culture Dysuria,urgency,freq; Clarity Turbid (Clear); Glucose, Urine (Dipstick) Normal (Negative); Ketone, Urine Negative (Negative); Leukocyte 500 Leu/uL (Negative); Nitrite Negative (Negative); Protein, Urine (Dipstick) Negative (Neg-Trace); RBC/HPF 0-3 HPF (0-3); Specific Gravity, Urine 1.031 (1.002-1.036); Squamous Epithelial None Seen HPF (0-3); Urobilinogen Normal mg/dL (Less than 2); WBC/HPF 21-50 HPF (0-3)
[2023-08-31 04:17] LABS: Bacteria/HPF 1+ HPF (None Seen)
[2023-08-31 04:18] LABS: Urine Culture Reflex Yes Yes
[2023-08-31 06:50] LABS: Albumin 3.7 g/dL (3.4-4.8); Anion Gap 12 mmol/L (10-20); BUN (Urea Nitrogen) 35 mg/dL (9.8-20.1); BUN/Creatinine Ratio 16.67; Calc. Creatinine Clearance 30 mL/min (70-130); Calcium 8.3 mg/dL (7.8-10.44); Carbon Dioxide 21 mmol/L (23-31); Cardiac Risk 4.1 (Less than 4.5); Chloride 110 mmol/L (98-107); Cholesterol 124 mg/dl (< 200 Desired); Estimated GFR 25; Glucose 104 mg/dL (83-110); HDL Cholesterol 30 mg/dL (>60 Neg Risk); LDL Cholesterol, Calculated 74 mg/dL; Phosphorus 3.6 mg/dL (2.3-4.7); Potassium 4.4 mmol/L (3.5-5.1); Sodium 139 mmol/L (136-145); Triglycerides 98 mg/dL (Less than 150)
[2023-08-31 07:08] LABS: #Eosinphils 0.3 thou/uL (0.0-0.7); #Monocytes 0.2 thou/uL (0.11-0.59); #Neutrophils 2.7 thou/uL (1.40-6.50); %Basophils 0.2 % (0.0-1.0); %Eosinophils 5.4 % (0.0-10.0); %Lymphocytes 34.5 % (21.0-51.0); %Monocytes 3.5 % (0.0-10.0); Hematocrit 17.3 % (36.0-47.0); Hemoglobin 6.1 g/dL (12.0-16.0); Mean Corpuscular HGB CONC 35.3 g/dL (32.0-36.0); Mean Corpuscular Hemoglobin 41.5 pg (27.0-31.0); Mean Corpuscular Volume 117.7 fl (78.0-98.0); Mean Platelet Volume 12.1 fL (7.4-10.4); Platelet Count 105 10x3/uL (130-400); Red Blood Cell (RBC) Count 1.47 mill/uL (4.20-5.40); White Blood Cell (WBC) Count 4.8 10x3/uL (4.8-10.8)
[2023-08-31] MEDS: Amlodipine 10 MG TAB PO SCH (09:01)
[2023-08-31] MEDS: Lactated Ringer's 1,000 ML IV SCH (09:01)
[2023-08-31] MEDS: Aspirin 81 mg Enteric Coated Tablet PO SCH (09:01)
[2023-08-31] MEDS ORDERED: Folic Acid 1 MG TAB PO SCH (09:45)
[2023-08-31] MEDS ORDERED: Thiamine 100 MG TAB PO SCH (09:45)
[2023-08-31 09:54] LABS: Hematocrit 18.2 % (36.0-47.0); Hemoglobin 6.4 g/dL (12.0-16.0)
[2023-08-31] MEDS: hydrALAZINE 10 MG TAB PO SCH ×3 (14:18→21:12)
[2023-08-31] MEDS ORDERED: Lorazepam 2 MG/ML VIAL SLOW IVP SCH (15:30)
[2023-08-31] MEDS ORDERED: Cyanocobalamin 1000 MCG/ML VIAL IM SCH (16:15)
[2023-08-31 17:25] LABS: Hematocrit 21.6 % (36.0-47.0); Hemoglobin 7.7 g/dL (12.0-16.0)
[2023-08-31] MEDS: Amlodipine 5 MG TAB PO SCH (21:12)
[2023-08-31] MEDS: Atorvastatin Calcium 40 MG TAB PO SCH (21:12)
[2023-08-31] MEDS: Famotidine 20 MG TAB PO SCH (21:12)
[2023-09-01 04:47] LABS: #Eosinphils 0.3 thou/uL (0.0-0.7); #Monocytes 0.2 thou/uL (0.11-0.59); #Neutrophils 3.6 thou/uL (1.40-6.50); %Basophils 0.2 % (0.0-1.0); %Eosinophils 5.9 % (0.0-10.0); %Lymphocytes 21.9 % (21.0-51.0); %Monocytes 2.9 % (0.0-10.0); %Neutrophils 68.3 % (42.0-75.0); Hematocrit 26.1 % (36.0-47.0); Hemoglobin 9.2 g/dL (12.0-16.0); Mean Corpuscular HGB CONC 35.2 g/dL (32.0-36.0); Mean Corpuscular Hemoglobin 35.7 pg (27.0-31.0); Mean Platelet Volume 11.7 fL (7.4-10.4); Platelet Count 96 10x3/uL (130-400); RBC Distribution Width 22.2 % (11.5-14.5); Red Blood Cell (RBC) Count 2.58 mill/uL (4.20-5.40); White Blood Cell (WBC) Count 5.2 10x3/uL (4.8-10.8)
[2023-09-01 04:52] LABS: Mean Corpuscular Volume 101.2 fl (78.0-98.0)
[2023-09-01 05:07] LABS: ALT (SGPT) 14 U/L (8-55); AST (SGOT) 32 U/L (5-34); Albumin 3.7 g/dL (3.4-4.8); Alkaline Phosphatase 71 U/L (40-110); Anion Gap 11 mmol/L (10-20); BUN (Urea Nitrogen) 30 mg/dL (9.8-20.1); Bilirubin, Total 1.9 mg/dL (0.2-1.2); Calc. Creatinine Clearance 34 mL/min (70-130); Calcium 8.5 mg/dL (7.8-10.44); Carbon Dioxide 21 mmol/L (23-31); Chloride 112 mmol/L (98-107); Estimated GFR 29; Globulin 2.4 g/dL (2.4-3.5); Glucose 94 mg/dL (83-110); Potassium 4.5 mmol/L (3.5-5.1); Protein, Total 6.1 g/dL (5.8-8.1); Sodium 139 mmol/L (136-145)
[2023-09-01] MEDS: Lactated Ringer's 1,000 ML IV SCH ×3 (06:00→20:58)
[2023-09-01] MEDS ORDERED: Thiamine 100 MG TAB PO SCH (09:00)
[2023-09-01] MEDS: Amlodipine 10 MG TAB PO SCH (09:46)
[2023-09-01] MEDS: hydrALAZINE 10 MG TAB PO SCH ×5 (09:47→20:56)
[2023-09-01] MEDS: Aspirin 81 mg Enteric Coated Tablet PO SCH (09:47)
[2023-09-01] MEDS: Cyanocobalamin (Vitamin B-12) 1,000 MCG TAB PO SCH (09:47)
[2023-09-01] MEDS: Folic Acid 1 MG TAB PO SCH (09:47)
[2023-09-01] MEDS: Amlodipine 5 MG TAB PO SCH ×3 (09:47→20:57)
[2023-09-01] MEDS: Thiamine 100 MG TAB PO SCH (09:47)
[2023-09-01] MEDS: cefTRIAXone\\ROCEPHIN 1 GM in Sodium Chloride 0.9% 100 ML IVPB SCH (14:02)
[2023-09-01 16:11] LABS: Reference Lab Name LABCORP
[2023-09-01] MEDS: Famotidine 20 MG TAB PO SCH ×2 (20:46→20:57)
[2023-09-01] MEDS: Atorvastatin Calcium 40 MG TAB PO SCH ×2 (20:46→20:57)
[2023-09-02 07:21] LABS: #Eosinphils 0.3 thou/uL (0.0-0.7); #Monocytes 0.4 thou/uL (0.11-0.59); %Basophils 0.2 % (0.0-1.0); %Eosinophils 6.6 % (0.0-10.0); %Lymphocytes 26.3 % (21.0-51.0); %Neutrophils 57.5 % (42.0-75.0); Hematocrit 26.4 % (36.0-47.0); Hemoglobin 9.5 g/dL (12.0-16.0); Mean Corpuscular Hemoglobin 36.3 pg (27.0-31.0); Mean Corpuscular Volume 100.8 fl (78.0-98.0); Mean Platelet Volume 12.8 fL (7.4-10.4); RBC Distribution Width 21.5 % (11.5-14.5); Red Blood Cell (RBC) Count 2.62 mill/uL (4.20-5.40); White Blood Cell (WBC) Count 5.1 10x3/uL (4.8-10.8)
[2023-09-02 07:23] LABS: Platelet Count 110 10x3/uL (130-400)
[2023-09-02 07:43] LABS: ALT (SGPT) 14 U/L (8-55); AST (SGOT) 24 U/L (5-34); Albumin 3.7 g/dL (3.4-4.8); Alkaline Phosphatase 73 U/L (40-110); Anion Gap 11 mmol/L (10-20); BUN (Urea Nitrogen) 23 mg/dL (9.8-20.1); Bilirubin, Total 1.5 mg/dL (0.2-1.2); Calc. Creatinine Clearance 35 mL/min (70-130); Calcium 8.5 mg/dL (7.8-10.44); Carbon Dioxide 24 mmol/L (23-31); Chloride 111 mmol/L (98-107); Estimated GFR 30; Globulin 2.2 g/dL (2.4-3.5); Glucose 106 mg/dL (83-110); Potassium 4.3 mmol/L (3.5-5.1); Protein, Total 5.9 g/dL (5.8-8.1); Sodium 142 mmol/L (136-145)
[2023-09-02] MEDS: Amlodipine 5 MG TAB PO SCH ×2 (08:13→21:20)
[2023-09-02] MEDS: Amlodipine 10 MG TAB PO SCH (08:13)
[2023-09-02] MEDS: Aspirin 81 mg Enteric Coated Tablet PO SCH (08:13)
[2023-09-02] MEDS: Cyanocobalamin (Vitamin B-12) 1,000 MCG TAB PO SCH (08:13)
[2023-09-02] MEDS: Folic Acid 1 MG TAB PO SCH (08:13)
[2023-09-02] MEDS: Thiamine 100 MG TAB PO SCH (08:13)
[2023-09-02] MEDS: hydrALAZINE 10 MG TAB PO SCH ×4 (08:13→21:20)
[2023-09-02] MEDS ORDERED: FLU VACC QS2023(65UP)/MF59C/PF 60 MCG/0.5 ML SYRINGE IM ONE (09:00)
[2023-09-02] MEDS: cefTRIAXone\\ROCEPHIN 1 GM in Sodium Chloride 0.9% 100 ML IVPB SCH (12:39)
[2023-09-02] MEDS: Famotidine 20 MG TAB PO SCH (21:21)
[2023-09-02] MEDS: Atorvastatin Calcium 40 MG TAB PO SCH (21:21)
[2023-09-02] MEDS: Lactated Ringer's 1,000 ML IV SCH (21:21)
[2023-09-03] MEDS ORDERED: Cyanocobalamin 1000 MCG/ML VIAL IM SCH (08:00)
[2023-09-03 08:31] LABS: #Eosinphils 0.4 thou/uL (0.0-0.7); #Monocytes 0.5 thou/uL (0.11-0.59); #Neutrophils 3.9 thou/uL (1.40-6.50); %Basophils 0.3 % (0.0-1.0); %Eosinophils 5.6 % (0.0-10.0); %Lymphocytes 25.2 % (21.0-51.0); %Monocytes 7.7 % (0.0-10.0); %Neutrophils 58.5 % (42.0-75.0); Hematocrit 26.8 % (36.0-47.0); Hemoglobin 9.5 g/dL (12.0-16.0); Mean Corpuscular HGB CONC 35.4 g/dL (32.0-36.0); Mean Corpuscular Volume 101.5 fl (78.0-98.0); Mean Platelet Volume 12.4 fL (7.4-10.4); Platelet Count 133 10x3/uL (130-400); RBC Distribution Width 21.3 % (11.5-14.5); Red Blood Cell (RBC) Count 2.64 mill/uL (4.20-5.40); White Blood Cell (WBC) Count 6.6 10x3/uL (4.8-10.8)
[2023-09-03 08:52] LABS: ALT (SGPT) 13 U/L (8-55); AST (SGOT) 17 U/L (5-34); Albumin 3.8 g/dL (3.4-4.8); Alkaline Phosphatase 76 U/L (40-110); Anion Gap 15 mmol/L (10-20); BUN (Urea Nitrogen) 18 mg/dL (9.8-20.1); Bilirubin, Total 1.2 mg/dL (0.2-1.2); Calc. Creatinine Clearance 36 mL/min (70-130); Calcium 8.7 mg/dL (7.8-10.44); Carbon Dioxide 23 mmol/L (23-31); Chloride 111 mmol/L (98-107); Estimated GFR 31; Globulin 2.5 g/dL (2.4-3.5); Glucose 102 mg/dL (83-110); Potassium 3.9 mmol/L (3.5-5.1); Protein, Total 6.3 g/dL (5.8-8.1); Sodium 145 mmol/L (136-145)
[2023-09-03] MEDS ORDERED: cloNIDine 0.1 MG TAB PO PRN (09:45)
[2023-09-03] MEDS ORDERED: NIFEdipine XL 30 MG ER.TAB PO SCH ×2 (09:45→21:00)
[2023-09-03] MEDS: Aspirin 81 mg Enteric Coated Tablet PO SCH (09:55)
[2023-09-03] MEDS: hydrALAZINE 10 MG TAB PO SCH (09:56)
[2023-09-03] MEDS: Amlodipine 5 MG TAB PO SCH (09:56)
[2023-09-03] MEDS: Thiamine 100 MG TAB PO SCH (09:56)
[2023-09-03] MEDS: Folic Acid 1 MG TAB PO SCH (09:56)
[2023-09-03] MEDS ORDERED: cefTRIAXone\\ROCEPHIN 1 GM in Sodium Chloride 0.9% 100 ML IVPB SCH (10:00)
[2023-09-03] MEDS ORDERED: Amlodipine 10 MG TAB PO SCH (10:30)
[2023-09-03 12:28] VITALS: TEMP 98.6
[2023-09-03 12:29] VITALS: BP 152/76
[2023-09-03] MEDS ORDERED: hydrALAZINE 25 MG TAB PO SCH (15:00)
[2023-09-04] MEDS ORDERED: Amlodipine 10 MG TAB PO SCH (09:00)
== END 2023-09-03 12:00 | disposition home or self-care (01) | DRG 682 ==
LOC: SUATTDRO 11:21 → ERS 11:21 → OBSVTOIN 13:53 → ERHOLD 13:53 → 2SE 18:25
PROVIDERS: ADMIT Internal Medicine; ATTEND Internal Medicine
PROC: 30233N1 Transfusion of Nonautologous Red Blood Cells into Peripheral Vein, Percutaneous Approach (ICD-10-PCS; principal; 2023-08-31)
DX: N17.9 Acute kidney failure, unspecified (principal); G93.41 Metabolic encephalopathy; D61.818 Other pancytopenia; E87.20 Acidosis, unspecified; I50.32 Chronic diastolic (congestive) heart failure; I13.0 Hypertensive heart and chronic kidney disease with heart failure and stage 1 through stage 4 chronic kidney disease, or unspecified chronic kidney disease; Z79.899 Other long term (current) drug therapy; E78.5 Hyperlipidemia, unspecified; Z90.49 Acquired absence of other specified parts of digestive tract; Z90.710 Acquired absence of both cervix and uterus; Z11.52 Encounter for screening for COVID-19; D63.1 Anemia in chronic kidney disease; D75.89 Other specified diseases of blood and blood-forming organs; Z79.82 Long term (current) use of aspirin; D51.9 Vitamin B12 deficiency anemia, unspecified; N30.90 Cystitis, unspecified without hematuria; B96.1 Klebsiella pneumoniae [K. pneumoniae] as the cause of diseases classified elsewhere; N18.30 Chronic kidney disease, stage 3 unspecified; E66.9 Obesity, unspecified; Z68.32 Body mass index [BMI] 32.0-32.9, adult
CPT/HCPCS: 36415; 36416; 36430; 70450; 70496; 70498; 70551; 71045; 74176; 80053; 80061; 80069; 81001; 82274; 82607; 82728; 83010; 83036; 83540; 83550; 83605; 83615; 83690; 83735; 84484; 85025; 85046; 85610; 85730; 86850; 86900; 86901; 87077; 87086; 87186; 93005; 96360; J0360; J0696; J2060; J3420; J3490; J7120; P9016; Q9967

== ENCOUNTER 2023-12-19 09:55 | Outpatient (CLI) | payer MEDICARE | END 2023-12-19 09:56 | disposition home or self-care (01) | LOC: BICMAMMO 09:55 | PROVIDERS: ATTEND Family Medicine | DX: Z12.31 Encounter for screening mammogram for malignant neoplasm of breast (principal) | CPT/HCPCS: 77063; 77067 ==